=== PATIENT | male | born 1985 ===

== ENCOUNTER 2017-03-31 23:29 | Emergency (ER) | payer SELFPAY ==
[2017-04-01 00:11] VITALS: RESP 18
[2017-04-01] MEDS ORDERED: Iohexol 240 (50 ml) PO ONE (00:28)
[2017-04-01] MEDS ORDERED: Sodium Chloride 0.9% 1,000 ML IV ONE (00:28)
[2017-04-01 00:48] LABS: RBC URINE 2 /hpf (0-3); URINE BACTERIA RARE (<OCC); URINE BILIRUBIN NEGATIVE (NEGATIVE); URINE BLOOD NEGATIVE (NEGATIVE); URINE COLOR Amber (YELLOW); URINE GLUCOSE (UA) NORMAL (Normal); URINE KETONE 2+ mg/dL (NEGATIVE); URINE LEUKOCYTE ESTERASE NEG Leu/uL (Negative); URINE PROTEIN 1+ mg/dL (NEGATIVE); WBC URINE 1 /hpf (0-5)
[2017-04-01 00:50] LABS: BASO # 0.1 K/uL (0.0-0.2); BASO % 0.6 % (0.0-2.0); EOS % 0.1 % (0.0-4.0); HEMATOCRIT 35.3 % (35.0-51.0); LYMPH # 1.1 K/uL (1.0-4.3); MEAN CORPUSCULAR HEMOGLOBIN 19.2 pg (27.0-31.0); MEAN CORPUSCULAR HGB CONC 31.1 g/dL (33.0-37.0); MEAN PLATELET VOLUME 11.5 fL (7.2-11.7); MONO # 0.8 K/uL (0.0-0.8); MONO % 7.1 % (0.0-10.0); NRBC % 0.8 % (0.0-2.0); RED CELL DISTRIBUTION WIDTH 18.3 % (11.5-14.5); WHITE BLOOD COUNT 10.9 K/uL (4.8-10.8)
[2017-04-01 00:52] LABS: MEAN CELL VOLUME 61.6 fL (80.0-94.0)
[2017-04-01 00:57] LABS: CHLORIDE 91 mmol/L (98-107)
[2017-04-01 01:00] LABS: ALB/GLOB RATIO 1.5 (1.0-2.1); ALKALINE PHOSPHATASE 101 U/L (38-126); ALT/SGPT 258 U/L (21-72); AST/SGOT 112 U/L (17-59); BILIRUBIN,TOTAL 2.7 mg/dL (0.2-1.3); BLOOD UREA NITROGEN 14 mg/dL (9-20); CARBON DIOXIDE 27 mmol/L (22-30); GFR AFRICAN-AMERICAN > 60; TOTAL PROTEIN 7.8 g/dL (6.3-8.3)
[2017-04-01 01:01] LABS: CALCIUM 8.5 mg/dl (8.6-10.4); GLUCOSE,RANDOM 115 mg/dL (75-110)
[2017-04-01 01:02] LABS: SODIUM 130 mmol/L (132-148)
[2017-04-01] MEDS ORDERED: Sodium Chloride 0.9% 1,000 ML ONE (01:08)
[2017-04-01] MEDS ORDERED: Iohexol 240 (50 ml) ONE (01:09)
--- NOTE | 2017-04-01 01:55 | C.PDOC ---
History Of Present Illness A 31 y/o male presents to the ER c/o lower abdominal pain upon waking up today. Pt denies fever, chills, nausea, vomiting, dysuria, diarrhea, or any other complaints. Time Seen by Provider: 04/01/17 00:10 Chief Complaint (Nursing): Abdominal Pain History Per: Patient History/Exam Limitations: no limitations Onset/Duration Of Symptoms: Hrs Current Symptoms Are (Timing): Still Present Severity: Mild Location Of Pain/Discomfort: RLQ, LLQ Recent travel outside of the [place]: No Additional History Per: Patient Past Medical History Reviewed: Historical Data, Nursing Documentation, Vital Signs Vital Signs: Last Vital Signs Temp 97.8 F 04/01/17 03:14 Pulse 78 04/01/17 03:14 Resp 18 04/01/17 03:14 BP 137/80 04/01/17 03:14 Pulse Ox 98 04/01/17 04:17 Family History: States: Unknown Family Hx - Social History Hx Alcohol Use: Yes Hx Substance Use: No - Immunization History Hx Tetanus Toxoid Vaccination: No Hx Influenza Vaccination: No Hx Pneumococcal Vaccination: No Review Of Systems Except As Marked, All Systems Reviewed And Found Negative. Constitutional: Negative for: Fever, Chills Gastrointestinal: Positive for: Abdominal Pain (Lower abdominal pain). Negative for: Nausea, Vomiting, Diarrhea Genitourinary: Negative for: Dysuria Physical Exam - Physical Exam Appears: Non-toxic, No Acute Distress Skin: Warm, Dry Head: Atraumatic, Normacephalic Eye(s): bilateral: Normal Inspection Cardiovascular: Rhythm Regular, No Murmur Respiratory: Normal Breath Sounds, No Rales, No Rhonchi, No Wheezing Gastrointestinal/Abdominal: Soft, Tenderness (Bilateral LQ tenderness), No Guarding, No Rebound Neurological/Psych: Oriented x3, Normal Speech, Normal Cognition ED Course And Treatment - Laboratory Results Result Diagrams: 04/01/17 00:43 04/01/17 00:43 O2 Sat by Pulse Oximetry: 98 (RA) Pulse Ox Interpretation: Normal - CT Scan/US CT Abdomen and Pelvis With Contrast Other Rad Studies (CT/US): Interpreted By Me, Read By Radiologist CT/US Interpretation: EXAM: CT Abdomen and Pelvis With Intravenous Contrast. CLINICAL HISTORY: 31 years old, male; Pain; Abdominal pain; Generalized; Additional info: Lower abd pain. TECHNIQUE: Axial computed tomography images of the abdomen and pelvis with intravenous contrast. This CT. exam was performed using one or more of the following dose reduction techniques: automated. exposure control, adjustment of the mA and/or kV according to patient size, and/or use of iterative. reconstruction technique. Coronal and sagittal reformatted images were created and reviewed. CONTRAST: 100 mL of visipaque administered intravenously. COMPARISON: No relevant prior studies available. FINDINGS: Lower thorax: Minimal atelectasis. Probable small hiatal hernia. ABDOMEN: Liver: Fatty infiltration. Gallbladder and bile ducts: No calcified stones. No ductal dilation. Pancreas: No ductal dilation. No mass. Spleen: Mild splenomegaly. Adrenals: No mass. Kidneys and ureters: No mass. No hydronephrosis. Stomach and bowel: Apparent mild mural thickening of few jejunal loops. No associated. inflammatory stranding. Few minimally distended loops of small bowel, likely ileus. Appendix: Normal caliber. No inflammation. PELVIS: Bladder: Unremarkable. Reproductive: Unremarkable as visualized. ABDOMEN and PELVIS: Intraperitoneal space: No significant fluid collection. No free air. Bones/joints: No acute fracture. Soft tissues: Unremarkable. Vasculature: Unremarkable. No abdominal aortic aneurysm. Lymph nodes: No pathologically enlarged lymph nodes. IMPRESSION: 1. Possible mild enteritis. Clinical correlation is needed. 2. Mild splenomegaly. 3. Incidental/non-acute findings are described above Medical Decision Making Medical Decision Making: Impression: 31 y/o c/o lower abdominal pain since today Plans: -CT Abd/pel -Omnipaque -Toradol -IV fluids -Reassess and disposition Patient is resting comfortably, abdomen remains soft, and patient is tolerating PO. Patient feels comfortable going home. Patient will be discharged home. Disposition Counseled Patient/Family Regarding: Diagnosis - Disposition Referrals: [facility] [Outside] Disposition: HOME/ ROUTINE Disposition Time: 04:19 Condition: STABLE Prescriptions: Dicyclomine [Bentyl] 20 mg PO Q6 #14 tab Instructions: Abdominal Pain (ED), Enteritis (ED) - POA Present On Arrival: None - Clinical Impression Clinical Impression: Abdominal pain, Enteritis - Scribe Statement The provider has reviewed the documentation as recorded by the Scribe Abigail nails All medical record entries made by the Faraibcalvin were at my direction and personally dictated by me. I have reviewed the chart and agree that the record accurately reflects my personal performance of the history, physical exam, medical decision making, and the department course for this patient. I have also personally directed, reviewed, and agree with the discharge instructions and disposition.
[2017-04-01] MEDS ORDERED: Iodixanol 320 MG/ML 100 ML BOTTLE IV ONE (03:04)
--- NOTE | 2017-04-01 04:15 | CT ---
EXAM: CT Abdomen and Pelvis With Intravenous Contrast CLINICAL HISTORY: 31 years old, male; Pain; Abdominal pain; Generalized; Additional info: Lower abd pain TECHNIQUE: Axial computed tomography images of the abdomen and pelvis with intravenous contrast. This CT exam was performed using one or more of the following dose reduction techniques: automated exposure control, adjustment of the mA and/or kV according to patient size, and/or use of iterative reconstruction technique. Coronal and sagittal reformatted images were created and reviewed. CONTRAST: 100 mL of visipaque administered intravenously. COMPARISON: No relevant prior studies available. FINDINGS: Lower thorax: Minimal atelectasis. Probable small hiatal hernia. ABDOMEN: Liver: Fatty infiltration. Gallbladder and bile ducts: No calcified stones. No ductal dilation. Pancreas: No ductal dilation. No mass. Spleen: Mild splenomegaly. Adrenals: No mass. Kidneys and ureters: No mass. No hydronephrosis. Stomach and bowel: Apparent mild mural thickening of few jejunal loops. No associated inflammatory stranding. Few minimally distended loops of small bowel, likely ileus. Appendix: Normal caliber. No inflammation. PELVIS: Bladder: Unremarkable. Reproductive: Unremarkable as visualized. ABDOMEN and PELVIS: Intraperitoneal space: No significant fluid collection. No free air. Bones/joints: No acute fracture. Soft tissues: Unremarkable. Vasculature: Unremarkable. No abdominal aortic aneurysm. Lymph nodes: No pathologically enlarged lymph nodes. IMPRESSION: 1. Possible mild enteritis. Clinical correlation is needed. 2. Mild splenomegaly. 3. Incidental/non-acute findings are described above.
[2017-04-01 04:37] VITALS: BP 147/84; PULSE 84; TEMP 98.2; O2SAT 99
== END 2017-04-01 04:42 | disposition home or self-care (01) ==
LOC: C.ER 23:29
DX: K52.9 Noninfective gastroenteritis and colitis, unspecified (principal)
CPT/HCPCS: 74177; 80053; 81001; 83690; 85025; 96361; 96374; 96376; 99285; J1885; J7040; Q9966; Q9967

== ENCOUNTER 2017-04-02 22:16 | Inpatient (IN) | payer OTHER ==
--- NOTE | 2017-04-02 23:29 | C.PDOC ---
History Of Present Illness Patient presents to the ED complaining of abdominal pain for the past 2 days. Patient was seen here 2 days ago for a similar complaint. Blood work and a CT scan was done at that time showing mild enteritis. Patient states he feels some discomfort. He denies fever, chills, nausea, vomiting, or diarrhea. Time Seen by Provider: 04/02/17 23:29 Chief Complaint (Nursing): Abdominal Pain History Per: Patient History/Exam Limitations: no limitations Onset/Duration Of Symptoms: Days (2) Current Symptoms Are (Timing): Still Present Context: Other Severity: Mild Pain Scale Rating Of: 3 Location Of Pain/Discomfort: Diffuse Radiation Of Pain To:: None Quality Of Discomfort: "Pain" Exacerbating Factors: None Alleviating Factors: None Last Bowel Movement: Today Recent travel outside of the [place]: No Additional History Per: Prior Records Past Medical History Reviewed: Historical Data, Nursing Documentation, Vital Signs Vital Signs: Last Vital Signs Temp 98.7 F 04/02/17 22:33 Pulse 79 04/02/17 22:33 Resp 19 04/02/17 22:33 BP 150/97 H 04/02/17 22:33 Pulse Ox 98 04/03/17 01:43 Family History: States: Unknown Family Hx - Social History Hx Alcohol Use: Yes Hx Substance Use: No - Immunization History Hx Tetanus Toxoid Vaccination: No Hx Influenza Vaccination: No Hx Pneumococcal Vaccination: No Review Of Systems Constitutional: Negative for: Fever, Chills Gastrointestinal: Positive for: Abdominal Pain. Negative for: Nausea, Vomiting , Diarrhea Physical Exam - Physical Exam Appears: Non-toxic, No Acute Distress Skin: Warm, Dry Head: Atraumatic, Normacephalic Eye(s): bilateral: Normal Inspection Oral Mucosa: Moist Neck: Supple Chest: Symmetrical Cardiovascular: Rhythm Regular Respiratory: No Rales, No Rhonchi, No Wheezing Gastrointestinal/Abdominal: Soft, Tenderness (mild mid-epigastric), No Guarding , No Rebound Back: No CVA Tenderness Extremity: Bilateral: Atraumatic Neurological/Psych: Oriented x3 Gait: Steady ED Course And Treatment - Laboratory Results Result Diagrams: 04/03/17 00:17 04/03/17 00:17 O2 Sat by Pulse Oximetry: 98 (room air) Pulse Ox Interpretation: Normal Progress Note: Plan: Labs, IV fluids Disposition Discussed With DrSarah: Kory Villeda Comment: accepted the pt on his service and took over the care at 1:40 AM Doctor Will See Patient In The: ED Counseled Patient/Family Regarding: Studies Performed, Diagnosis - Disposition Disposition: HOSPITALIZED Disposition Time: 23:29 Condition: FAIR - POA Present On Arrival: None - Clinical Impression Clinical Impression: Abdominal pain, Pancreatitis - Scribe Statement The provider has reviewed the documentation as recorded by the Scribe Suha Randall Provider Attestation: All medical record entries made by the Faraibe were at my direction and personally dictated by me. I have reviewed the chart and agree that the record accurately reflects my personal performance of the history, physical exam, medical decision making, and the department course for this patient. I have also personally directed, reviewed, and agree with the discharge instructions and disposition.
[2017-04-02] MEDS ORDERED: Sodium Chloride 0.9% 1,000 ML IV ONE (23:30)
[2017-04-03 00:22] LABS: BASO # 0.1 K/uL (0.0-0.2); MEAN PLATELET VOLUME 9.8 fL (7.2-11.7); MONO % 7.9 % (0.0-10.0)
[2017-04-03 00:32] LABS: BASO % 0.4 % (0.0-2.0); EOS % 0.2 % (0.0-4.0); HEMATOCRIT 37.9 % (35.0-51.0); LYMPH # 2.2 K/uL (1.0-4.3); MEAN CELL VOLUME 62.3 fL (80.0-94.0); MEAN CORPUSCULAR HEMOGLOBIN 19.3 pg (27.0-31.0); NRBC % 0.6 % (0.0-2.0); PLATELET COUNT 210 K/uL (130-400); RED CELL DISTRIBUTION WIDTH 18.3 % (11.5-14.5); WHITE BLOOD COUNT 12.9 K/uL (4.8-10.8)
[2017-04-03 00:35] LABS: CHLORIDE 95 mmol/L (98-107); SODIUM 133 mmol/L (132-148)
[2017-04-03 00:37] LABS: GFR AFRICAN-AMERICAN > 60
[2017-04-03 00:38] LABS: ALB/GLOB RATIO 2.3 (1.0-2.1); ALKALINE PHOSPHATASE 88 U/L (38-126); ALT/SGPT 205 U/L (21-72); AST/SGOT 90 U/L (17-59); BILIRUBIN,TOTAL 2.9 mg/dL (0.2-1.3); BLOOD UREA NITROGEN 4 mg/dL (9-20); CALCIUM 9.5 mg/dl (8.6-10.4); CARBON DIOXIDE 27 mmol/L (22-30); GLUCOSE,RANDOM 104 mg/dL (75-110); TOTAL PROTEIN 8.2 g/dL (6.3-8.3)
[2017-04-03] MEDS ORDERED: Piperacillin/Tazobact 3.375 gm 100 ML IVPB STA (00:48)
--- NOTE | 2017-04-03 01:26 | CP.PCM.HP ---
<Lenin Mejia - Last Filed: 04/03/17 06:00> History of Present Illness - History of Present Illness History of Present Illness: CC: "abdominal pain" 31 M with no significant PMH presents to [facility] ED for complaint of abdominal pain for 2 days. Patient reports that he came in on Sunday for abdominal pain. CT scan was done and only showed enteritis. He was dischrged wiht one prescription and told to follow up. The pain resolved but came back today much worse. Before Sunday, patient reports to never having these symptoms before. Patient also revealed that he drank about 1 pint of liquor on Sunday. Patient drinks about 1 pint 4 days per week normally. He rated the pain 8/10 in severity at its worst. He described the pain as intermittent and sharp located in the epigastric region with radiation to back occasionally. Patient denies any exacerbating or alleviating factors. Admits to chills, nausea, diarrhea. Denies fever, cp, sob, palpitations, vomiting, incontinence, constipation, numbness/tingling, PMD: None PMH: Denies Meds: Denies Allergy: NKDA PSH: Denies Hosp: Denies Fh: Unknown Social: works as construction inspector, lives with girlfriend, smokes 1 pack per week for 12 years, drinks 4 days per week (finishes about 1 pint per day), occasionally smokes marijuana Present on Admission - Present on Admission Any Indicators Present on Admission: No History of DVT/PE: No History of Uncontrolled Diabetes: No Urinary Catheter: No Decubitus Ulcer Present: No Review of Systems - Constitutional Constitutional: Anorexia, Chills. absent: Fever - EENT Eyes: absent: Blurred Vision, Change in Vision Ears: absent: Dizziness Nose/Mouth/Throat: absent: Nasal Congestion, Nasal Discharge, Sore Throat - Cardiovascular Cardiovascular: absent: Chest Pain, Chest Pain at Rest, Dyspnea, Lightheadedness , Palpitations, Rapid Heart Rate, Syncope - Respiratory Respiratory: absent: Cough, Dyspnea, Hemoptysis, Dyspnea on Exertion - Gastrointestinal Gastrointestinal: Abdominal Pain, Diarrhea, Nausea. absent: Coffee Ground Emesis, Constipation, Fecal Incontinence, Vomiting - Genitourinary Genitourinary: absent: Change in Urinary Stream, Difficulty Urinating, Dysuria, Urinary Incontinence - Musculoskeletal Musculoskeletal: absent: Numbness, Stiffness, Tingling - Integumentary Integumentary: absent: Lesions, New Lesions, Skin Ulcer - Neurological Neurological: absent: Dizziness, Numbness, Headaches, Syncope, Tingling, Tremor , Vertigo, Weakness - Psychiatric Psychiatric: absent: Anxiety, Depression, Homicidal Ideation, Suicidal Ideation - Endocrine Endocrine: absent: Fatigue, Palpitations, Polydipsia, Polyphagia, Polyuria - Hematologic/Lymphatic Hematologic: absent: Easy Bleeding, Easy Bruising, Lymphadenopathy Past Patient History - Infectious Disease Hx of Infectious Diseases: None - Past Social History Smoking Status: Heavy Smoker > 10 Cigarettes Daily - PSYCHIATRIC Hx Substance Use: No - SURGICAL HISTORY Hx Surgeries: No - ANESTHESIA Hx Anesthesia: No Meds Allergies/Adverse Reactions: Allergies Allergy/AdvReac Type Severity Reaction Status Date / Time No Known Allergies Allergy Verified 04/02/17 22:32 Physical Exam - Constitutional Appears: No Acute Distress - Head Exam Head Exam: ATRAUMATIC, NORMOCEPHALIC - Eye Exam Eye Exam: EOMI, Normal appearance Pupil Exam: PERRL - ENT Exam ENT Exam: Mucous Membranes Dry - Neck Exam Neck exam: Positive for: Normal Inspection - Respiratory Exam Respiratory Exam: Clear to Auscultation Bilateral, NORMAL BREATHING PATTERN - Cardiovascular Exam Cardiovascular Exam: REGULAR RHYTHM, +S1, +S2 - GI/Abdominal Exam GI & Abdominal Exam: Normal Bowel Sounds, Soft. absent: Distended, Firm, Guarding, Rebound, Rigid, Tenderness - Extremities Exam Extremities exam: Positive for: normal capillary refill, pedal pulses present. Negative for: calf tenderness, tenderness - Back Exam Back exam: absent: CVA tenderness (L), CVA tenderness (R) - Neurological Exam Neurological exam: Alert, CN II-XII Intact, Oriented x3 - Psychiatric Exam Psychiatric exam: Normal Affect, Normal Mood - Skin Skin Exam: Dry, Intact, Normal Color, Warm Results - Vital Signs Recent Vital Signs: Last Vital Signs Temp 98.7 F 04/02/17 22:33 Pulse 79 04/02/17 22:33 Resp 19 04/02/17 22:33 BP 150/97 H 04/02/17 22:33 Pulse Ox 98 04/03/17 00:41 - Labs Result Diagrams: 04/03/17 03:46 04/03/17 03:46 Labs: Laboratory Results - last 24 hr 04/03/17 04/03/17 00:17 00:17 WBC 12.9 H RBC 6.08 H Hgb 11.7 L Hct 37.9 MCV 62.3 L MCH 19.3 L MCHC 31.0 L RDW 18.3 H Plt Count 210 MPV 9.8 Neut % (Auto) 74.5 Lymph % (Auto) 17.0 L Dickey % (Auto) 7.9 Eos % (Auto) 0.2 Baso % (Auto) 0.4 Neut # 9.6 H Lymph # 2.2 Dickey # 1.0 H Eos # 0.0 Baso # 0.1 Sodium 133 Potassium 4.0 Chloride 95 L Carbon Dioxide 27 Anion Gap 15 BUN 4 L Creatinine 0.8 Est GFR ( Amer) > 60 Est GFR (Non-Af Amer) > 60 Random Glucose 104 Calcium 9.5 Total Bilirubin 2.9 H AST 90 H ALT 205 H D Alkaline Phosphatase 88 Total Protein 8.2 Albumin 5.7 H D Globulin 2.5 Albumin/Globulin Ratio 2.3 H Lipase 873 H Assessment & Plan - Assessment and Plan (Free Text) Plan: 1. Pancreatitis NPO IVF Lipase 873 CT abd/pelvis 03/31: showed enteritis and mild splenomegaly (see full report) - lipase was normal (101) UDS Serum alcohol Iron studies Folate/B12 Thiamine 100 mg IV daily Folate 1 mg IV daily f/u daily labs 2. Transaminitis AST 90 ALT 205 Alk Phos 88 Total bili 2.9 3. Prophylactic Measures Protonix 40 mg IVP daily SCDs Zofran 4 mg IVP Q6H <Kory Villeda P - Last Filed: 04/08/17 19:42> Results - Vital Signs Recent Vital Signs: Last Vital Signs Temp 98.1 F 04/04/17 07:00 Pulse 81 04/04/17 07:00 Resp 20 04/04/17 07:00 BP 121/73 04/04/17 07:00 Pulse Ox 98 04/04/17 07:00 - Labs Result Diagrams: 04/04/17 07:07 04/04/17 07:07 Attending/Attestation - Attestation I have personally seen and examined this patient.: Yes I have fully participated in the care of the patient.: Yes I have reviewed all pertinent clinical information: Yes
[2017-04-03] MEDS ORDERED: Piperacill/Tazo 3.375gm in Dex 3.375 GM/50 ML BAG IVPB SCH (02:30)
[2017-04-03] MEDS: Sodium Chloride 0.9% 1,000 ML IV SCH ×6 (02:38→20:25)
[2017-04-03] MEDS ORDERED: Sodium Chloride 0.9% 1,000 ML ONE (02:39)
[2017-04-03 03:40] LABS: NEUTROPHIL 79 % (50-75); NUCLEATED RED BLOOD CELL 1 % (0-0); REACTIVE LYMPHOCYTES 5 % (0-0); TOTAL CELLS COUNTED 100
[2017-04-03 03:44] LABS: GIANT PLATELETS PRESENT; LARGE PLATELETS PRESENT
[2017-04-03 03:50] LABS: BASO % 0.4 % (0.0-2.0); EOS % 0.3 % (0.0-4.0); HEMATOCRIT 34.6 % (35.0-51.0); LYMPH # 2.5 K/uL (1.0-4.3); LYMPH % 21.7 % (20.0-40.0); MEAN CORPUSCULAR HGB CONC 30.7 g/dL (33.0-37.0); MEAN PLATELET VOLUME 9.9 fL (7.2-11.7); MONO # 0.9 K/uL (0.0-0.8); MONO % 7.7 % (0.0-10.0); NRBC % 0.5 % (0.0-2.0); RED CELL DISTRIBUTION WIDTH 17.6 % (11.5-14.5); WHITE BLOOD COUNT 11.6 K/uL (4.8-10.8)
[2017-04-03 04:04] LABS: CHLORIDE 98 mmol/L (98-107); SODIUM 135 mmol/L (132-148)
[2017-04-03 04:05] LABS: IRON 150 ug/dL (49-181); POTASSIUM 3.7 mmol/L (3.6-5.2)
[2017-04-03 04:06] LABS: BILIRUBIN,TOTAL 3.1 mg/dL (0.2-1.3); GFR AFRICAN-AMERICAN > 60
[2017-04-03 04:07] LABS: ALB/GLOB RATIO 1.5 (1.0-2.1); ALKALINE PHOSPHATASE 73 U/L (38-126); ALT/SGPT 178 U/L (21-72); AST/SGOT 86 U/L (17-59); BLOOD UREA NITROGEN 4 mg/dL (9-20); CARBON DIOXIDE 28 mmol/L (22-30); GLUCOSE,RANDOM 98 mg/dL (75-110); PHOSPHOROUS 3.6 mg/dL (2.5-4.5); TOTAL PROTEIN 6.8 g/dL (6.3-8.3)
[2017-04-03 04:08] LABS: ALCOHOL SERUM < 10 mg/dl (0-10); CALCIUM 8.4 mg/dl (8.6-10.4)
[2017-04-03 05:13] LABS: FOLATE 5.1 ng/mL
--- NOTE | 2017-04-03 10:19 | US ---
Abdominal ultrasound History: Elevated liver enzymes. Comparison: None available. Technique: Real-time sonography was performed through the abdomen. Findings: Liver: 16.5 centimeters in length. Increased echogenicity suggestive for fatty infiltration versus hepatic parenchymal disease. Gallbladder appears preserved. Normal wall thickness of 2 millimeters. Negative sonographic Carrillo's sign. Common bile duct measures 3.2 millimeters, within normal limits. Pancreas not well visualized, obscured at the head and tail. Visualized aorta and IVC are preserved. Right kidney measures 11.0 x 4.0 x 4.8 centimeters, within normal limits. Impression: Increased echogenicity of the hepatic parenchyma suggestive for fatty infiltration versus hepatic parenchymal disease. Clinical correlation. Pancreas not well visualized.
[2017-04-03] MEDS: Thiamine 100 mg/ml Inj IV SCH (10:45)
[2017-04-03 11:09] LABS: URINE BILIRUBIN NEGATIVE (NEGATIVE); URINE BLOOD NEGATIVE (NEGATIVE); URINE COLOR Yellow (YELLOW); URINE GLUCOSE (UA) NORMAL (Normal); URINE KETONE NEGATIVE (NEGATIVE); URINE LEUKOCYTE ESTERASE NEG Leu/uL (Negative); URINE PROTEIN NEGATIVE (NEGATIVE); URINE UROBILINOGEN NORMAL mg/dL (0.2-1.0); WBC URINE < 1 /hpf (0-5)
--- NOTE | 2017-04-03 18:06 | CP.PCM.PN ---
<Shawn Price - Last Filed: 04/03/17 18:04> Subjective - Date & Time of Evaluation Date of Evaluation: 04/03/17 Time of Evaluation: 09:30 - Subjective Subjective: Hospitalist Note- Dr. Hernandez's service Patient seen and evaluated at bedside. He was observed ambulating from the restroom. He reports having some loose stool but denies any blood or discoloration. He denies any dysuria. He states his abdominal pain is improving and would like to try eating some food. He notes he has been drinking heavily the past few weeks but denies any withdrawal symtpoms when he stops drinking. He says this is an awakening and will not be drinking in the future. He denies any chest pain, SOB, fever,chills, nausea, or vomiting. Per nursing, no adverse events over night. Objective - Vital Signs/Intake and Output Vital Signs (last 24 hours): Temp Pulse Resp BP Pulse Ox 98.1 F 77 21 147/82 97 04/03/17 16:00 04/03/17 16:00 04/03/17 16:00 04/03/17 16:00 04/03/17 16:00 Intake and Output: 04/03/17 04/03/17 06:59 18:59 Intake Total 200 1600 Balance 200 1600 - Medications Medications: Current Medications Sodium Chloride (Sodium Chloride 0.9%) 1,000 mls @ 200 mls/hr IV [facility] Last Admin: 04/03/17 15:10 Dose: 200 mls/hr Folic Acid 1 mg/ Sodium (Chloride) 100.2 mls @ 60 mls/hr IV DAILY [facility] Last Admin: 04/03/17 10:04 Dose: 60 mls/hr Ondansetron HCl (Zofran Inj) 4 mg IVP Q6 PRN PRN Reason: Nausea/Vomiting Pneumococcal Polyvalent Vaccine (Pneumovax 23 Vaccine) 0.5 ml IM .ONCE ONE Stop: 04/05/17 10:01 Thiamine HCl (Vitamin B1 Inj) 100 mg IV DAILY [facility] Last Admin: 04/03/17 10:45 Dose: 100 mg - Labs Labs: 04/03/17 03:46 04/03/17 03:46 - Constitutional Appears: Non-toxic, No Acute Distress - Head Exam Head Exam: ATRAUMATIC, NORMOCEPHALIC - Eye Exam Eye Exam: EOMI, Normal appearance, PERRL Pupil Exam: NORMAL ACCOMODATION, PERRL - ENT Exam ENT Exam: Mucous Membranes Moist - Neck Exam Neck Exam: Normal Inspection - Respiratory Exam Respiratory Exam: Clear to Ausculation Bilateral, NORMAL BREATHING PATTERN. absent: Rales, Rhonchi, Wheezes - Cardiovascular Exam Cardiovascular Exam: REGULAR RHYTHM, +S1, +S2. absent: Gallop, Rubs, Murmur - GI/Abdominal Exam GI & Abdominal Exam: Soft, Tenderness (RUQ), Normal Bowel Sounds. absent: Distended, Guarding, Rigid, Rebound - Extremities Exam Extremities Exam: Normal Capillary Refill, Normal Inspection. absent: Pedal Edema, Tenderness - Back Exam Back Exam: NORMAL INSPECTION. absent: rash noted, tenderness - Neurological Exam Neurological Exam: Alert, Awake, CN II-XII Intact, Oriented x3 - Psychiatric Exam Psychiatric exam: Normal Affect, Normal Mood - Skin Skin Exam: Dry, Intact, Normal Color, Warm Assessment and Plan - Assessment and Plan (Free Text) Plan: Abdominal pain * Likely due to pancreatitis * Afebrile with mild leukocytosis of 11.6 * CT abd/pelvis 03/31: showed enteritis and mild splenomegaly (see full report) - lipase was normal (101) * GB ultrasound 04/03: increased echogenicitiy of the hepatic parenchyma suggestive for fatty infiltration vs hepatic prenchymal disease, no stones visualized [see full report] * Lipase 873 on admission * IVF NS@ 200mls/hr * Patient kept NPO * UDS negative for alcohol or drugs * Inron studies show Iron 150, TIBC 230, 65% sat, ferritin 787, B12-549, and folate 5.1 * Continue Thiamine 100 mg IV daily * Folate 1 mg IV daily * f/u daily labs * ADAT Transaminitis * Initially AST 90 ALT 205 Alk Phos 88 Total bili 2.9 * Repeat AST 86, ALT 178, Alk Phos 73, T Bili 3.1 * Continue to monitor Alcohol abuse * Advised on importance of cessation * Offered resources for alcoholics anonymous Prophylactic Measures * Protonix 40 mg IVP daily * SCDs * Zofran 4 mg IVP Q6H Assessment and plan discussed with attending physician. <Justin Hernandez - Last Filed: 04/03/17 18:40> Objective - Vital Signs/Intake and Output Vital Signs (last 24 hours): Temp Pulse Resp BP Pulse Ox 98.1 F 77 21 147/82 97 04/03/17 16:00 04/03/17 16:00 04/03/17 16:00 04/03/17 16:00 04/03/17 16:00 Intake and Output: 04/03/17 04/03/17 06:59 18:59 Intake Total 200 1600 Balance 200 1600 - Medications Medications: Current Medications Sodium Chloride (Sodium Chloride 0.9%) 1,000 mls @ 200 mls/hr IV .[facility] Last Admin: 04/03/17 15:10 Dose: 200 mls/hr Folic Acid 1 mg/ Sodium (Chloride) 100.2 mls @ 60 mls/hr IV [facility] Last Admin: 04/03/17 10:04 Dose: 60 mls/hr Ondansetron HCl (Zofran Inj) 4 mg IVP Q6 PRN PRN Reason: Nausea/Vomiting Pneumococcal Polyvalent Vaccine (Pneumovax 23 Vaccine) 0.5 ml IM .ONCE ONE Stop: 04/05/17 10:01 Thiamine HCl (Vitamin B1 Inj) 100 mg IV [facility]ILY [facility] Last Admin: 04/03/17 10:45 Dose: 100 mg - Labs Labs: 04/03/17 03:46 04/03/17 03:46 Attending/Attestation - Attestation I have personally seen and examined this patient.: Yes I have fully participated in the care of the patient.: Yes I have reviewed all pertinent clinical information, including history, physical exam and plan: Yes Notes (Text): 04/03/17 18:35 Medical Attending: Patient was seen and examined by me with the medical secretary receptionist. He was ambulating in the hallway and bathroom was ok. He described his drinking history to us, he is still on IVF at this time and we will cont with this. He felt that he was ready to try a diet so we advanced his diet to full liquid. At the time we were seeing patient he had not yet had abdominal U/S. I was later informed that this was done and did not suggest stone complications. So at this time advance diet, continue with IVF. Potential DC soon
[2017-04-03 23:58] VITALS: RESP 20
[2017-04-04] MEDS: Sodium Chloride 0.9% 1,000 ML IV SCH ×4 (03:20→13:01)
[2017-04-04 07:22] LABS: BASO # 0.1 K/uL (0.0-0.2); BASO % 0.7 % (0.0-2.0); EOS # 0.1 K/uL (0.0-0.7); EOS % 0.9 % (0.0-4.0); HEMATOCRIT 34.8 % (35.0-51.0); LYMPH # 2.4 K/uL (1.0-4.3); LYMPH % 24.7 % (20.0-40.0); MEAN CELL VOLUME 62.7 fL (80.0-94.0); MEAN CORPUSCULAR HEMOGLOBIN 19.6 pg (27.0-31.0); MEAN CORPUSCULAR HGB CONC 31.3 g/dL (33.0-37.0); MEAN PLATELET VOLUME 10.7 fL (7.2-11.7); MONO # 0.8 K/uL (0.0-0.8); MONO % 8.5 % (0.0-10.0); RED CELL DISTRIBUTION WIDTH 18.3 % (11.5-14.5); WHITE BLOOD COUNT 9.6 K/uL (4.8-10.8)
[2017-04-04 07:32] LABS: INR 1.1
[2017-04-04 07:43] LABS: CHLORIDE 99 mmol/L (98-107); POTASSIUM 3.9 mmol/L (3.6-5.2); SODIUM 135 mmol/L (132-148)
[2017-04-04 07:46] LABS: ALB/GLOB RATIO 1.5 (1.0-2.1); ALKALINE PHOSPHATASE 67 U/L (38-126); ALT/SGPT 196 U/L (21-72); AST/SGOT 103 U/L (17-59); BILIRUBIN,TOTAL 2.5 mg/dL (0.2-1.3); BLOOD UREA NITROGEN 5 mg/dL (9-20); CARBON DIOXIDE 26 mmol/L (22-30); GFR AFRICAN-AMERICAN > 60; GLUCOSE,RANDOM 84 mg/dL (75-110); TOTAL PROTEIN 6.7 g/dL (6.3-8.3)
[2017-04-04 07:47] LABS: CALCIUM 8.4 mg/dl (8.6-10.4)
[2017-04-04 08:51] VITALS: BP 121/73; PULSE 81; TEMP 98.1; O2SAT 98
[2017-04-04] MEDS: Thiamine 100 mg/ml Inj IV SCH (09:14)
--- NOTE | 2017-04-04 11:17 | CP.PCM.DIS ---
<Shawn Price - Last Filed: 04/04/17 17:23> Provider - Provider Date of Admission: 04/03/17 01:46 Attending physician: Kory Villeda MD Time Spent in preparation of Discharge (in minutes): 35 Hospital Course - Lab Results Lab Results: Most Recent Lab Values WBC 9.6 K/uL (4.8-10.8) 04/04/17 07:07 RBC 5.56 Mil/uL (4.40-5.90) 04/04/17 07:07 Hgb 10.9 g/dL (12.0-18.0) L 04/04/17 07:07 Hct 34.8 % (35.0-51.0) L 04/04/17 07:07 MCV 62.7 fL (80.0-94.0) L 04/04/17 07:07 MCH 19.6 pg (27.0-31.0) L 04/04/17 07:07 MCHC 31.3 g/dL (33.0-37.0) L 04/04/17 07:07 RDW 18.3 % (11.5-14.5) H 04/04/17 07:07 Plt Count 217 K/uL (130-400) 04/04/17 07:07 MPV 10.7 fL (7.2-11.7) 04/04/17 07:07 Neut % (Auto) 65.2 % (50.0-75.0) 04/04/17 07:07 Lymph % (Auto) 24.7 % (20.0-40.0) 04/04/17 07:07 [place] % (Auto) 8.5 % (0.0-10.0) 04/04/17 07:07 Eos % (Auto) 0.9 % (0.0-4.0) 04/04/17 07:07 Baso % (Auto) 0.7 % (0.0-2.0) 04/04/17 07:07 Neut # 6.3 K/uL (1.8-7.0) 04/04/17 07:07 Lymph # 2.4 K/uL (1.0-4.3) 04/04/17 07:07 [place] # 0.8 K/uL (0.0-0.8) 04/04/17 07:07 Eos # 0.1 K/uL (0.0-0.7) 04/04/17 07:07 Baso # 0.1 K/uL (0.0-0.2) 04/04/17 07:07 Neutrophils % (Manual) 79 % (50-75) H 04/03/17 00:17 Lymphocytes % (Manual) 11 % (20-40) L 04/03/17 00:17 Reactive Lymphs % 5 % (0-0) H 04/03/17 00:17 Monocytes % (Manual) 5 % (0-10) 04/03/17 00:17 Nucleated RBC % 1 % (0-0) H 04/03/17 00:17 Platelet Estimate Normal (NORMAL) 04/03/17 00:17 Large Platelets Present 04/03/17 00:17 Giant Platelets Present 04/03/17 00:17 Polychromasia Slight 04/03/17 00:17 Hypochromasia (manual) Moderate 04/03/17 00:17 Poikilocytosis (manual Slight 04/03/17 00:17 Basophilic Stippling Slight 04/03/17 00:17 Anisocytosis (manual) Moderate 04/03/17 00:17 Microcytosis (manual) Moderate 04/03/17 00:17 Tear Drop Cells Moderate 04/03/17 00:17 Ovalocytes Slight 04/03/17 00:17 PT 12.7 SECONDS (9.7-12.2) H 04/04/17 07:07 INR 1.1 04/04/17 07:07 APTT 30 SECONDS (21-34) 04/04/17 07:07 Sodium 135 mmol/L (132-148) 04/04/17 07:07 Potassium 3.9 mmol/L (3.6-5.2) 04/04/17 07:07 Chloride 99 mmol/L (98-107) 04/04/17 07:07 Carbon Dioxide 26 mmol/L (22-30) 04/04/17 07:07 Anion Gap 14 (10-20) 04/04/17 07:07 BUN 5 mg/dL (9-20) L 04/04/17 07:07 Creatinine 0.7 MG/DL (0.8-1.5) L 04/04/17 07:07 Est GFR ( Amer) > 60 04/04/17 07:07 Est GFR (Non-Af Amer) > 60 04/04/17 07:07 Random Glucose 84 mg/dL (75-110) 04/04/17 07:07 Calcium 8.4 mg/dl (8.6-10.4) L 04/04/17 07:07 Phosphorus 3.6 mg/dL (2.5-4.5) 04/03/17 03:46 Magnesium 2.0 mg/dL (1.6-2.3) 04/03/17 03:46 Iron 150 ug/dL (49-181) 04/03/17 03:46 TIBC 230 ug/dL (250-450) L 04/03/17 03:46 % Saturation 65 (20-55) H 04/03/17 03:46 Transferrin 155.66 mg/dL (206-381) L 04/03/17 03:46 Ferritin 787.0 ng/mL 04/03/17 03:46 Total Bilirubin 2.5 mg/dL (0.2-1.3) H 04/04/17 07:07 AST 103 U/L (17-59) H 04/04/17 07:07 ALT 196 U/L (21-72) H 04/04/17 07:07 Alkaline Phosphatase 67 U/L (38-126) 04/04/17 07:07 Lactate Dehydrogenase 827 U/L (313-618) H 04/03/17 11:41 Total Protein 6.7 g/dL (6.3-8.3) 04/04/17 07:07 Albumin 4.0 g/dL (3.5-5.0) 04/04/17 07:07 Globulin 2.7 gm/dL (2.2-3.9) 04/04/17 07:07 Albumin/Globulin Ratio 1.5 (1.0-2.1) 04/04/17 07:07 Lipase 873 U/L (23-300) H 04/03/17 00:17 Vitamin B12 549 pg/mL (239-931) 04/03/17 03:46 Folate 5.1 ng/mL 04/03/17 03:46 Urine Color Yellow (YELLOW) 04/03/17 10:46 Urine Clarity Clear (Clear) 04/03/17 10:46 Urine pH 8.0 (5.0-8.0) 04/03/17 10:46 Ur Specific [place] 1.008 (1.003-1.030) 04/03/17 10:46 Urine Protein Negative mg/dL (NEGATIVE) 04/03/17 10:46 Urine Glucose (UA) Normal mg/dL (Normal) 04/03/17 10:46 Urine Ketones Negative mg/dL (NEGATIVE) 04/03/17 10:46 Urine Blood Negative (NEGATIVE) 04/03/17 10:46 Urine Nitrate Negative (NEGATIVE) 04/03/17 10:46 Urine Bilirubin Negative (NEGATIVE) 04/03/17 10:46 Urine Urobilinogen Normal mg/dL (0.2-1.0) 04/03/17 10:46 Ur Leukocyte Esterase Neg Reginald/uL (Negative) 04/03/17 10:46 Urine WBC (Auto) < 1 /hpf (0-5) 04/03/17 10:46 Urine Opiates Screen Negative (NEGATIVE) 04/03/17 06:07 Urine Methadone Screen Negative (NEGATIVE) 04/03/17 06:07 Ur Barbiturates Screen Negative (NEGATIVE) 04/03/17 06:07 Ur Phencyclidine Scrn Negative (NEGATIVE) 04/03/17 06:07 Ur Amphetamines Screen Negative (NEGATIVE) 04/03/17 06:07 U Benzodiazepines Scrn Negative (NEGATIVE) 04/03/17 06:07 U Oth Cocaine Metabols Negative (NEGATIVE) 04/03/17 06:07 U Cannabinoids Screen Negative (NEGATIVE) 04/03/17 06:07 Alcohol, Quantitative < 10 mg/dl (0-10) 04/03/17 03:46 - Hospital Course Hospital Course: CC: "abdominal pain" 31 M with no significant PMH presents to [facility] ED for complaint of abdominal pain for 2 days. Patient reports that he came in on Sunday for abdominal pain. CT scan was done and only showed enteritis. He was dischrged wiht one prescription and told to follow up. The pain resolved but came back today much worse. Before Sunday, patient reports to never having these symptoms before. Patient also revealed that he drank about 1 pint of liquor on Sunday. Patient drinks about 1 pint 4 days per week normally. He rated the pain 8/10 in severity at its worst. He described the pain as intermittent and sharp located in the epigastric region with radiation to back occasionally. Patient denies any exacerbating or alleviating factors. Admits to chills, nausea, diarrhea. Denies fever, cp, sob, palpitations, vomiting, incontinence, constipation, numbness/tingling, Hospital Course: Patient is a 31 y/o M who presented with complaint of abdominal pain. He was afebrile with mild leukocytosis. He was found to have a lipase of 873. A CT of the abdomen and pelvis showed enteritis and mild splenomegaly. Abdominal ultrasound showed increased echogenicitiy of the hepatic parenchyma suggestive for fatty infiltration vs hepatic prenchymal disease, no stones visualized. He was started on IV fluid hydration and kept NPO for bowel rest. His symptoms improved and his diet was advanced. His LFT's improved and he was placed on a regular diet. He was determined medically stable for discharge. He was advised to: follow up with your primary care physician or the [facility] within a week; take medications as prescribed; refrain from alcohol, tobacco, or drug use; and if your condition worsens or new symptoms arise, please return to the emergency room. He verbalized understanding and was discharged with prescriptions for folic acid, multivitamin, and thiamine. This is a brief summary of the patient stay at this facility. For more detail, see patient's full chart. - Date & Time of H&P Date of H&P: 04/03/17 Time of H&P: 01:11 Discharge Exam - Head Exam Head Exam: ATRAUMATIC, NORMOCEPHALIC - Eye Exam Eye Exam: EOMI, Normal appearance, PERRL Pupil Exam: NORMAL ACCOMODATION, PERRL - ENT Exam ENT Exam: Mucous Membranes Moist, Normal Oropharynx - Neck Exam Neck exam: Normal Inspection - Respiratory Exam Respiratory Exam: NORMAL BREATHING PATTERN, UNREMARKABLE. absent: Rales, Rhonchi, Wheezes - Cardiovascular Exam Cardiovascular Exam: REGULAR RHYTHM, +S1, +S2. absent: Gallop, Rubs, Systolic Murmur - GI/Abdominal Exam GI & Abdominal Exam: Normal Bowel Sounds, Soft. absent: Distended, Tenderness - Extremities Exam Extremities exam: normal capillary refill, normal inspection, pedal pulses present - Back Exam Back exam: NORMAL INSPECTION. absent: rash noted, tenderness - Neurological Exam Neurological exam: Alert, CN II-XII Intact, Oriented x3 - Psychiatric Exam Psychiatric exam: Normal Affect, Normal Mood - Skin Skin Exam: Dry, Intact, Normal Color, Warm Discharge Plan - Discharge Medications Prescriptions: Folic Acid 1 mg PO DAILY #30 tab Multivitamin [Daily Value] 1 each PO DAILY #30 tablet Thiamine [Vitamin B1 Tab] 100 mg PO DAILY #30 tab - Follow Up Plan Condition: FAIR Disposition: HOME/ ROUTINE Instructions: Thiamine (Vitamin B-1) (By mouth), Folic Acid (By mouth), Multivitamins, Adult Formula (By mouth), How to Stop Smoking (DC), How to Stop Smoking (GEN), Pancreatitis (DC), Cigarette Smoking and Your Health (GEN), Acute Abdominal Pain (DC), Acute Abdominal Pain (GEN) Additional Instructions: You are medically stable for discharge. Please follow up with your primary care physician or the [facility] within a week. Please take medications as prescribed. Please refrain from alcohol, tobacco, or drug use. If your condition worsens or new symptoms arise, please return to the emergency room. Referrals: [facility] at [facility] [Outside] <Justin Hernandez - Last Filed: 04/04/17 18:19> Provider - Provider Date of Admission: 04/03/17 01:46 Attending physician: Justin Hernandez DO Hospital Course - Lab Results Lab Results: Most Recent Lab Values WBC 9.6 K/uL (4.8-10.8) 04/04/17 07:07 RBC 5.56 Mil/uL (4.40-5.90) 04/04/17 07:07 Hgb 10.9 g/dL (12.0-18.0) L 04/04/17 07:07 Hct 34.8 % (35.0-51.0) L 04/04/17 07:07 MCV 62.7 fL (80.0-94.0) L 04/04/17 07:07 MCH 19.6 pg (27.0-31.0) L 04/04/17 07:07 MCHC 31.3 g/dL (33.0-37.0) L 04/04/17 07:07 RDW 18.3 % (11.5-14.5) H 04/04/17 07:07 Plt Count 217 K/uL (130-400) 04/04/17 07:07 MPV 10.7 fL (7.2-11.7) 04/04/17 07:07 Neut % (Auto) 65.2 % (50.0-75.0) 04/04/17 07:07 Lymph % (Auto) 24.7 % (20.0-40.0) 04/04/17 07:07 [place] % (Auto) 8.5 % (0.0-10.0) 04/04/17 07:07 Eos % (Auto) 0.9 % (0.0-4.0) 04/04/17 07:07 Baso % (Auto) 0.7 % (0.0-2.0) 04/04/17 07:07 Neut # 6.3 K/uL (1.8-7.0) 04/04/17 07:07 Lymph # 2.4 K/uL (1.0-4.3) 04/04/17 07:07 [place] # 0.8 K/uL (0.0-0.8) 04/04/17 07:07 Eos # 0.1 K/uL (0.0-0.7) 04/04/17 07:07 Baso # 0.1 K/uL (0.0-0.2) 04/04/17 07:07 Neutrophils % (Manual) 79 % (50-75) H 04/03/17 00:17 Lymphocytes % (Manual) 11 % (20-40) L 04/03/17 00:17 Reactive Lymphs % 5 % (0-0) H 04/03/17 00:17 Monocytes % (Manual) 5 % (0-10) 04/03/17 00:17 Nucleated RBC % 1 % (0-0) H 04/03/17 00:17 Platelet Estimate Normal (NORMAL) 04/03/17 00:17 Large Platelets Present 04/03/17 00:17 Giant Platelets Present 04/03/17 00:17 Polychromasia Slight 04/03/17 00:17 Hypochromasia (manual) Moderate 04/03/17 00:17 Poikilocytosis (manual Slight 04/03/17 00:17 Basophilic Stippling Slight 04/03/17 00:17 Anisocytosis (manual) Moderate 04/03/17 00:17 Microcytosis (manual) Moderate 04/03/17 00:17 Tear Drop Cells Moderate 04/03/17 00:17 Ovalocytes Slight 04/03/17 00:17 PT 12.7 SECONDS (9.7-12.2) H 04/04/17 07:07 INR 1.1 04/04/17 07:07 APTT 30 SECONDS (21-34) 04/04/17 07:07 Sodium 135 mmol/L (132-148) 04/04/17 07:07 Potassium 3.9 mmol/L (3.6-5.2) 04/04/17 07:07 Chloride 99 mmol/L (98-107) 04/04/17 07:07 Carbon Dioxide 26 mmol/L (22-30) 04/04/17 07:07 Anion Gap 14 (10-20) 04/04/17 07:07 BUN 5 mg/dL (9-20) L 04/04/17 07:07 Creatinine 0.7 MG/DL (0.8-1.5) L 04/04/17 07:07 Est GFR ( Amer) > 60 04/04/17 07:07 Est GFR (Non-Af Amer) > 60 04/04/17 07:07 Random Glucose 84 mg/dL (75-110) 04/04/17 07:07 Calcium 8.4 mg/dl (8.6-10.4) L 04/04/17 07:07 Phosphorus 3.6 mg/dL (2.5-4.5) 04/03/17 03:46 Magnesium 2.0 mg/dL (1.6-2.3) 04/03/17 03:46 Iron 150 ug/dL (49-181) 04/03/17 03:46 TIBC 230 ug/dL (250-450) L 04/03/17 03:46 % Saturation 65 (20-55) H 04/03/17 03:46 Transferrin 155.66 mg/dL (206-381) L 04/03/17 03:46 Ferritin 787.0 ng/mL 04/03/17 03:46 Total Bilirubin 2.5 mg/dL (0.2-1.3) H 04/04/17 07:07 AST 103 U/L (17-59) H 04/04/17 07:07 ALT 196 U/L (21-72) H 04/04/17 07:07 Alkaline Phosphatase 67 U/L (38-126) 04/04/17 07:07 Lactate Dehydrogenase 827 U/L (313-618) H 04/03/17 11:41 Total Protein 6.7 g/dL (6.3-8.3) 04/04/17 07:07 Albumin 4.0 g/dL (3.5-5.0) 04/04/17 07:07 Globulin 2.7 gm/dL (2.2-3.9) 04/04/17 07:07 Albumin/Globulin Ratio 1.5 (1.0-2.1) 04/04/17 07:07 Lipase 873 U/L (23-300) H 04/03/17 00:17 Vitamin B12 549 pg/mL (239-931) 04/03/17 03:46 Folate 5.1 ng/mL 04/03/17 03:46 Urine Color Yellow (YELLOW) 04/03/17 10:46 Urine Clarity Clear (Clear) 04/03/17 10:46 Urine pH 8.0 (5.0-8.0) 04/03/17 10:46 Ur Specific [place] 1.008 (1.003-1.030) 04/03/17 10:46 Urine Protein Negative mg/dL (NEGATIVE) 04/03/17 10:46 Urine Glucose (UA) Normal mg/dL (Normal) 04/03/17 10:46 Urine Ketones Negative mg/dL (NEGATIVE) 04/03/17 10:46 Urine Blood Negative (NEGATIVE) 04/03/17 10:46 Urine Nitrate Negative (NEGATIVE) 04/03/17 10:46 Urine Bilirubin Negative (NEGATIVE) 04/03/17 10:46 Urine Urobilinogen Normal mg/dL (0.2-1.0) 04/03/17 10:46 Ur Leukocyte Esterase Neg [place]inald/uL (Negative) 04/03/17 10:46 Urine WBC (Auto) < 1 /hpf (0-5) 04/03/17 10:46 Urine Opiates Screen Negative (NEGATIVE) 04/03/17 06:07 Urine Methadone Screen Negative (NEGATIVE) 04/03/17 06:07 Ur Barbiturates Screen Negative (NEGATIVE) 04/03/17 06:07 Ur Phencyclidine Scrn Negative (NEGATIVE) 04/03/17 06:07 Ur Amphetamines Screen Negative (NEGATIVE) 04/03/17 06:07 U Benzodiazepines Scrn Negative (NEGATIVE) 04/03/17 06:07 U Oth Cocaine Metabols Negative (NEGATIVE) 04/03/17 06:07 U Cannabinoids Screen Negative (NEGATIVE) 04/03/17 06:07 Alcohol, Quantitative < 10 mg/dl (0-10) 04/03/17 03:46 Attending/Attestation - Attestation I have personally seen and examined this patient.: Yes I have fully participated in the care of the patient.: Yes I have reviewed all pertinent clinical information, including history, physical exam and plan: Yes Notes (Text): 04/04/17 18:16 Medical Attending: Patient was seen and examined by me. Agree with the above note by the resident. The patient felt well. He tolerated his diet and was ambulating on his own and also not having any shakes or tremors or withdrawal symptoms when we asked him about these. The patient was advised to avoid alcohol, and we explained to him that he is jeopardizing his health greatly by continuing to drink alcohol thank you Justin Hernandez
[2017-04-05] MEDS ORDERED: Pneumococcal 23-Valent Vaccine IM ONE (10:00)
== END 2017-04-04 13:49 | disposition home or self-care (01) | DRG 204 ==
LOC: C.ER 22:16 → C.9E 04-03 01:46 → C.3T 04-03 05:19
PROVIDERS: ADMIT Hospitalist; ATTEND Hospitalist
DX: K85.90 Acute pancreatitis without necrosis or infection, unspecified (principal); R16.1 Splenomegaly, not elsewhere classified; K52.9 Noninfective gastroenteritis and colitis, unspecified; F10.10 Alcohol abuse, uncomplicated; F12.90 Cannabis use, unspecified, uncomplicated; F17.210 Nicotine dependence, cigarettes, uncomplicated